=== PATIENT | female | born 1995 | race Caucasian/White ===

== ENCOUNTER 2024-09-12 01:05 | Emergency (ER) | payer OTHER ==
[~2024-09-12] VITALS: Ht 162.6 cm; Wt 65.3 kg
[2024-09-12] MEDS ORDERED: NS 1,000 ML IV SCH (01:45)
[2024-09-12 02:11] LABS: BASOPHILS ABSOLUTE AUTO 0.02 K/mm3 (0.00-0.23); BASOPHILS PERCENT AUTO 0 % (0-2); EOSINOPHILS ABSOLUTE AUTO 0.03 K/mm3 (0.00-0.68); EOSINOPHILS PERCENT AUTO 0 % (0-6); Hematocrit 34.8 % (33.0-51.0); IMMATURE GRAN ABSOLUTE AUTO 0.05 K/mm3 (0.00-0.10); IMMATURE GRAN PERCENT AUTO 1 % (0-1); LYMPHOCYTES ABSOLUTE AUTO 1.05 K/mm3 (0.84-5.20); LYMPHOCYTES PERCENT AUTO 10 % (21-46); MONOCYTES ABSOLUTE AUTO 0.68 K/mm3 (0.16-1.47); MONOCYTES PERCENT AUTO 7 % (4-13); Mean Corpuscular HGB 29.9 pg (26.0-34.0); Mean Corpuscular HGB Conc 34.5 g/dL (31.5-36.5); Mean Corpuscular Volume 87 fL (80-100); Mean Platelet Volume 8.9 fL (9.1-12.4); NEUTROPHILS ABSOLUTE AUTO 8.61 K/mm3 (1.96-9.15); NEUTROPHILS PERCENT AUTO 82 % (41-73); Platelet Count 182 K/mm3 (150-400); RDW Coefficient Variation 11.9 % (11.7-14.2); RDW Standard Deviation 37.8 fL (35.1-46.3); Red Blood Cell Count 4.01 M/mm3 (3.80-5.20); White Blood Cell Count 10.44 K/mm3 (4.00-11.30)
[2024-09-12 02:16] LABS: Source, Urine Clean Catch
[2024-09-12 02:27] LABS: Influenza A, PCR NEGATIVE (NEGATIVE); Influenza B, PCR NEGATIVE (NEGATIVE); Resp Syncytial Virus, PCR NEGATIVE (NEGATIVE); SARS-Cov-2 (COVID-19) PCR, MMC NEGATIVE (NEGATIVE)
[2024-09-12 02:33] LABS: Albumin, Blood 3.5 g/dL (3.4-5.0); Bilirubin, Total 0.4 mg/dL (0.1-1.0); Bun/Creatinine Ratio 14.4 (12.0-20.0); Calcium, Blood 9.3 mg/dL (8.5-10.1); Creatinine, Blood 0.63 mg/dL (0.40-1.00); Globulin, Blood 3.6 g/dL (2.2-4.0); Potassium, Blood 3.6 mmol/L (3.5-5.5); Total Protein, Blood 7.1 g/dL (6.4-8.2)
[2024-09-12 02:50] LABS: Bilirubin, Urine Neg (Neg); Blood, Urine Neg (Neg); Glucose Qualitative, Urine Neg (Neg); Ketones, Urine Neg (Neg); Leukocyte Esterase, Urine Neg (Neg); Nitrite, Urine Neg (Neg); Protein, Urine Neg (Neg); Urobilinogen, Urine NORM (Normal)
[2024-09-12 03:00] VITALS: BP 120/73
[2024-09-12] MEDS ORDERED: Acetaminophen 500 MG Tab PO ONE (03:00)
[2024-09-12 03:06] LABS: Appearance, Urine Clear (Clear); Color, Urine Yellow (P-Yellow)
== END 2024-09-12 03:29 | disposition home or self-care (01) ==
LOC: ER 01:05
PROVIDERS: Emergency Medicine
DX: O9A.211 Injury, poisoning and certain other consequences of external causes complicating pregnancy, first trimester (principal); S09.90XA Unspecified injury of head, initial encounter; O98.511 Other viral diseases complicating pregnancy, first trimester; B34.9 Viral infection, unspecified; R55 Syncope and collapse; R51.9 Headache, unspecified; Z88.5 Allergy status to narcotic agent; Z3A.09 9 weeks gestation of pregnancy
CPT/HCPCS: 0241U; 76801; 80053; 81003; 85025; 87081; 87430; 99284-25; A9270; J7030

== ENCOUNTER → 2025-03-20 | Outpatient (CLI) | payer OTHER | LOC: LAB 11:25 → LAB SHORT 11:25 | DX: Z34.83 Encounter for supervision of other normal pregnancy, third trimester (principal) | CPT/HCPCS: 87081 ==

== ENCOUNTER → 2025-06-23 | Outpatient (CLI) | payer OTHER ==
[~2025-06-23] MED LIST: ACET500 PO; IBUP800 PO; PRENATAL TABLE1 EAC2 PO
[2025-06-27 15:02] LABS: HPVG SOURCE Cervical
== END | disposition home or self-care (01) ==
LOC: LAB SHORT 17:40 → LAB 17:40
PROVIDERS: Family Medicine
DX: Z12.4 Encounter for screening for malignant neoplasm of cervix (principal)
CPT/HCPCS: 87624; 87625; G0145

== ENCOUNTER → 2025-08-27 | Outpatient (CLI) | payer OTHER | LOC: LAB SHORT 07:52 → LAB 07:52 | DX: D06.0 Carcinoma in situ of endocervix (principal) | CPT/HCPCS: 88305; 88342 ==

== ENCOUNTER 2025-10-24 09:03 | Day surgery (SDC) | payer OTHER ==
[~2025-10-24] VITALS: Ht 162.6 cm; Wt 78.4 kg
[~2025-10-24 09:03] MED LIST changes: +Oxytocin 10 Unit / ML Vial ONE
[2025-10-24] MEDS ORDERED: [UNRECOGNIZED DRUG - OTHER] (09:25)
[2025-10-24] MEDS ORDERED: [UNRECOGNIZED DRUG - OTHER] (09:25)
[2025-10-24] MEDS ORDERED: PROBIOTIC (09:26)
[2025-10-24] MEDS ORDERED: FentaNYL Citrate 50 MCG/ML 2 ML Injection ONE (09:36)
[2025-10-24 10:55] VITALS: BP 108/87
--- NOTE | 2025-10-24 11:24 | NUR ---
10/24/25 1124 Amarilys Linares PT ABLE TO VOID PRIOR TO D/C.
[2025-10-31] MEDS ORDERED: [UNRECOGNIZED DRUG - OTHER] (01:01)
[2025-10-31] MEDS ORDERED: sunflower lecithin (01:04)
== END 2025-10-24 11:24 | disposition home or self-care (01) ==
LOC: ORSCSDS 09:03
PROVIDERS: Obstetrics & Gynecology
PROC: 0UBC7ZX Excision of Cervix, Via Natural or Artificial Opening, Diagnostic (ICD-10-PCS; principal; 2025-10-24 10:30)
DX: D06.9 Carcinoma in situ of cervix, unspecified (principal)
CPT/HCPCS: 88305; 88341; 88342; A9270; J2003; J2590; J2704; J3010; J7120

== ENCOUNTER 2025-10-30 19:08 | Inpatient (IN) | payer OTHER ==
[~2025-10-30] VITALS: Ht 160 cm; Wt 78.9 kg
[~2025-10-30 19:08] MED LIST changes: -Oxytocin 10 Unit / ML Vial ONE; +PROBIOTIC; +[UNRECOGNIZED DRUG - OTHER]; +[UNRECOGNIZED DRUG - OTHER]
[2025-10-30] MEDS ORDERED: Ketorolac Tromethamine 15mg Vial IV ONE (19:40)
[2025-10-30 19:51] LABS: BASOPHILS ABSOLUTE AUTO 0.04 K/mm3 (0.00-0.23); BASOPHILS PERCENT AUTO 0 % (0-2); EOSINOPHILS ABSOLUTE AUTO 0.06 K/mm3 (0.00-0.68); EOSINOPHILS PERCENT AUTO 0 % (0-6); Hematocrit 40.8 % (33.0-51.0); Hemoglobin 14.1 g/dL (11.5-16.0); IMMATURE GRAN ABSOLUTE AUTO 0.09 K/mm3 (0.00-0.10); IMMATURE GRAN PERCENT AUTO 1 % (0-1); LYMPHOCYTES ABSOLUTE AUTO 1.23 K/mm3 (0.84-5.20); LYMPHOCYTES PERCENT AUTO 7 % (21-46); MONOCYTES ABSOLUTE AUTO 0.92 K/mm3 (0.16-1.47); MONOCYTES PERCENT AUTO 5 % (4-13); Mean Corpuscular HGB Conc 34.6 g/dL (31.5-36.5); Mean Corpuscular Volume 84 fL (80-100); NEUTROPHILS ABSOLUTE AUTO 15.94 K/mm3 (1.96-9.15); NEUTROPHILS PERCENT AUTO 87 % (41-73); NRBC ABSOLUTE 0.00 K/mm3 (0.00-0.02); NRBC Auto 0.0 /100 WBC (0.0-0.2); Platelet Count 215 K/mm3 (150-400); RDW Coefficient Variation 12.0 % (11.7-14.2); RDW Standard Deviation 36.5 fL (35.1-46.3)
[2025-10-30] MEDS ORDERED: NS 1,000 ML IV SCH (20:00)
[2025-10-30] MEDS ORDERED: CefTRIAXone Sodium 1,000 MG in NS 50 ML IV ONE (20:15)
[2025-10-30 20:25] LABS: Alanine Aminotransfer (ALT/SGP 62.0 U/L (12-78); Albumin, Blood 4.1 g/dL (3.4-5.0); Albumin/Globulin Ratio 1.2 (0.8-1.8); Anion Gap 9.0 mmol/L (3-11); Aspartate Aminotrans (AST/SGOT 26.0 U/L (12-37); Bilirubin, Total 0.5 mg/dL (0.1-1.0); Blood Urea Nitrogen 13.0 mg/dL (8-24); CO2, Blood 24.0 mmol/L (21-32); Calcium, Blood 9.3 mg/dL (8.5-10.1); Chloride, Blood 105.0 mmol/L (98-108); Creatinine, Blood 0.77 mg/dL (0.40-1.00); Globulin, Blood 3.4 g/dL (2.2-4.0); Glucose, Blood 111.0 mg/dL (70-99); Potassium, Blood 3.7 mmol/L (3.5-5.5); Sodium, Blood 134.0 mmol/L (136-145); Total Protein, Blood 7.5 g/dL (6.4-8.2)
[2025-10-30 20:25] LABS: Source, Urine Clean Catch
[2025-10-30 20:28] LABS: Bilirubin, Urine Neg (Neg); Glucose Qualitative, Urine Neg (Neg); Ketones, Urine Neg (Neg); Leukocyte Esterase, Urine Neg (Neg); Protein, Urine Neg (Neg); Specific Gravity, Urine 1.005 (1.003-1.022); Urobilinogen, Urine NORM (Normal)
[2025-10-30 20:34] LABS: Color, Urine Pale Yellow (P-Yellow)
[2025-10-30] MEDS ORDERED: FLU VACC TS2025-26(6MOS UP)/PF 45 MCG/0.5 ML SYRINGE IM SCH (22:00)
[2025-10-30] MEDS ORDERED: NS 1,000 ML IV ONE (22:00)
[2025-10-30 23:19] VITALS: BP 114/90
[2025-10-31] MEDS ORDERED: Ondansetron HCl 2 MG / ML 2ML Vial IV PRN (00:10)
[2025-10-31] MEDS ORDERED: [UNRECOGNIZED DRUG - OTHER] PO (01:01)
[2025-10-31] MEDS ORDERED: PROBIOTIC1 EA13 PO (01:02)
[2025-10-31] MEDS ORDERED: SUNFLOWER LECITHIN PO (01:04)
[2025-10-31 04:07] VITALS: BP 106/62
[2025-10-31 06:15] LABS: BASOPHILS ABSOLUTE AUTO 0.02 K/mm3 (0.00-0.23); BASOPHILS PERCENT AUTO 0 % (0-2); EOSINOPHILS ABSOLUTE AUTO 0.05 K/mm3 (0.00-0.68); EOSINOPHILS PERCENT AUTO 0 % (0-6); Hematocrit 36.8 % (33.0-51.0); Hemoglobin 12.1 g/dL (11.5-16.0); IMMATURE GRAN ABSOLUTE AUTO 0.07 K/mm3 (0.00-0.10); IMMATURE GRAN PERCENT AUTO 1 % (0-1); LYMPHOCYTES ABSOLUTE AUTO 2.58 K/mm3 (0.84-5.20); LYMPHOCYTES PERCENT AUTO 17 % (21-46); MONOCYTES ABSOLUTE AUTO 1.26 K/mm3 (0.16-1.47); MONOCYTES PERCENT AUTO 8 % (4-13); Mean Corpuscular HGB Conc 32.9 g/dL (31.5-36.5); Mean Corpuscular Volume 86 fL (80-100); NEUTROPHILS ABSOLUTE AUTO 11.06 K/mm3 (1.96-9.15); NEUTROPHILS PERCENT AUTO 74 % (41-73); NRBC ABSOLUTE 0.00 K/mm3 (0.00-0.02); NRBC Auto 0.0 /100 WBC (0.0-0.2); Platelet Count 177 K/mm3 (150-400); RDW Coefficient Variation 12.1 % (11.7-14.2); RDW Standard Deviation 38.6 fL (35.1-46.3)
[2025-10-31 06:40] LABS: Alanine Aminotransfer (ALT/SGP 54.0 U/L (12-78); Albumin, Blood 3.2 g/dL (3.4-5.0); Albumin/Globulin Ratio 1.0 (0.8-1.8); Anion Gap 7.0 mmol/L (3-11); Aspartate Aminotrans (AST/SGOT 24.0 U/L (12-37); Bilirubin, Total 0.7 mg/dL (0.1-1.0); Blood Urea Nitrogen 9.0 mg/dL (8-24); CO2, Blood 26.0 mmol/L (21-32); Calcium, Blood 8.6 mg/dL (8.5-10.1); Chloride, Blood 109.0 mmol/L (98-108); Creatinine, Blood 0.7 mg/dL (0.40-1.00); Globulin, Blood 3.2 g/dL (2.2-4.0); Glucose, Blood 90.0 mg/dL (70-99); Potassium, Blood 3.3 mmol/L (3.5-5.5); Sodium, Blood 139.0 mmol/L (136-145); Total Protein, Blood 6.4 g/dL (6.4-8.2)
--- NOTE | 2025-10-31 07:50 | NUR ---
ASSUMED CARE AT 2315. A/Ox4, TEMPERATURE OF 100.0 INITIALLY, DOWN TO 98.6 AFTER TYLENOL. HR 106-126, OTHER VSS ON RA. 6-MONTH OLD DAUGHTER ROOMING IN, CURRENTLY BREAST FEEDING. PT REPORTS R BREAST PAIN AND HEADACHE, MANAGED WITH TYLENOL. REPORTS NAUSEA, PT DECLINED ZOFRAN, CRACKERS AND FLUIDS HELPFUL. UP TO RESTROOM AD GREG. BED IN LOW POSITION, CALL LIGHT IN REACH.
[2025-10-31 07:57] VITALS: BP 99/66
[2025-10-31] MEDS ORDERED: Lactobacil 2-S.Thermo-Bifido 1 1 Cap PO SCH (09:00)
[2025-10-31] MEDS ORDERED: Enoxaparin 40 MG/0.4 ML SYR SC SCH (09:00)
[2025-10-31 16:41] VITALS: BP 128/70
--- NOTE | 2025-10-31 18:47 | NUR ---
SHIFT SUMMARY PT IS A/OX4. INDEPENDENT IN THE ROOM. NO ACUTE EVENTS THROUGHOUT THIS SHIFT. SLIGHT REDNESS TO THE RIGHT SIDE OF THE RIGHT BREAST. GIVEN TYLENOL X1 THIS SHIFT WITH IMPROVEMENT TO PAIN. RECIEVING IV ANTIBIOTICS PER JAN.
[2025-10-31 19:52] VITALS: BP 108/77
[2025-10-31] MEDS ORDERED: CefTRIAXone Sodium 1,000 MG in NS 100 ML IV SCH (21:00)
[2025-11-01 04:56] VITALS: BP 99/64
--- NOTE | 2025-11-01 05:25 | NUR ---
SHIFT SUMMARY PT IS A&OX4, PLEASANT AND COOPERATIVE WITH CARE. PT DENIED PAIN THIS SHIFT. NO ACUTE CHANGES. PT RESTED T/O SHIFT WITH EVEN AND UNLABORED RESPIRATIONS, BED IN THE LOWEST POSITION, AND CALL LIGHT WITHIN REACH.
[2025-11-01 07:36] VITALS: BP 109/73
[2025-11-01 09:40] LABS: BASOPHILS ABSOLUTE AUTO 0.04 K/mm3 (0.00-0.23); BASOPHILS PERCENT AUTO 0 % (0-2); EOSINOPHILS ABSOLUTE AUTO 0.16 K/mm3 (0.00-0.68); EOSINOPHILS PERCENT AUTO 1 % (0-6); Hematocrit 40.7 % (33.0-51.0); Hemoglobin 13.6 g/dL (11.5-16.0); IMMATURE GRAN ABSOLUTE AUTO 0.08 K/mm3 (0.00-0.10); IMMATURE GRAN PERCENT AUTO 1 % (0-1); LYMPHOCYTES ABSOLUTE AUTO 2.38 K/mm3 (0.84-5.20); LYMPHOCYTES PERCENT AUTO 22 % (21-46); MONOCYTES ABSOLUTE AUTO 0.63 K/mm3 (0.16-1.47); MONOCYTES PERCENT AUTO 6 % (4-13); Mean Corpuscular HGB Conc 33.4 g/dL (31.5-36.5); Mean Corpuscular Volume 87 fL (80-100); NEUTROPHILS ABSOLUTE AUTO 7.80 K/mm3 (1.96-9.15); NEUTROPHILS PERCENT AUTO 70 % (41-73); NRBC ABSOLUTE 0.00 K/mm3 (0.00-0.02); NRBC Auto 0.0 /100 WBC (0.0-0.2); Platelet Count 225 K/mm3 (150-400); RDW Coefficient Variation 12.0 % (11.7-14.2); RDW Standard Deviation 38.6 fL (35.1-46.3)
[2025-11-01 10:09] LABS: Anion Gap 11.0 mmol/L (3-11); Blood Urea Nitrogen 9.0 mg/dL (8-24); CO2, Blood 24.0 mmol/L (21-32); Calcium, Blood 9.0 mg/dL (8.5-10.1); Chloride, Blood 107.0 mmol/L (98-108); Creatinine, Blood 0.69 mg/dL (0.40-1.00); Glucose, Blood 115.0 mg/dL (70-99); Potassium, Blood 3.8 mmol/L (3.5-5.5); Sodium, Blood 138.0 mmol/L (136-145)
[2025-11-01] MEDS ORDERED: VISBIOME 112.51 EACH PO (11:41)
[2025-11-01] MEDS ORDERED: CEPH500 PO (11:42)
== END 2025-11-01 11:48 | disposition home or self-care (01) | DRG 872 ==
LOC: ER 19:08 → ERHOLD 19:09 → MEDS 19:09 → ENPENDDIS 11-01 11:33 → MEDS 11-01 11:48
PROVIDERS: Internal Medicine; Physician Assistant; ADMIT Family Medicine
DX: A41.9 Sepsis, unspecified organism (principal); E87.21 Acute metabolic acidosis; E87.1 Hypo-osmolality and hyponatremia; R65.20 Severe sepsis without septic shock; E87.6 Hypokalemia; O91.23 Nonpurulent mastitis associated with lactation; Z88.5 Allergy status to narcotic agent
CPT/HCPCS: 36415; 76642; 80048; 80053; 81003; 83605; 85025; 87040; 93005; 93010; 96361; 96365; 96375; 99285-25; A9270; G0378; J0696; J1885; J7030